=== PATIENT | female | born 1965 | race Caucasian/White ===

== ENCOUNTER 2017-01-09 12:27 | Emergency (ER) | payer MEDICAID, OTHER ==
[~2017-01-09] VITALS: Ht 157.5 cm; Wt 78.1 kg
[2017-01-09 12:32] VITALS: BP 163/90; PULSE 80; RESP 18; TEMP 97.6; O2SAT 98
[2017-01-09] MEDS ORDERED: SODIUM CHLORIDE 0.9% FLUSH 10 ML FLUSH IV FLUSH PRN (13:15)
--- NOTE | 2017-01-09 13:43 | PD ---
HPI Chief Complaint: Abdominal Pain Time Seen by Provider: 13:10 Travel History International Travel<30 days: No Contact w/Intl Traveler<30days: No Traveled to known affect area: No History of Present Illness HPI 51-year-old female complains of left low quadrant abdominal pain with nausea. Patient states that she has intermittent left low quadrant abdominal pain with nausea for the past few months. Patient was seen by personal physician in [place] in October of this year and was diagnosed with UTI. Patient was given prescription for antibiotic. Patient states that she took the antibiotic as directed. Patient states that she had some improvement of the right-sided abdominal pain however never cleared up completely. Patient states that the pain get worse since then. Patient denies any fever chills. Patient states that the pain is worse with eating. Patient denies any dysuria or frequency. Patient denies any vaginal discharge or bleeding. Patient status post tubal ligation. Patient states that the pain occasionally radiates to the left low back area. Patient had a gynecologic exam recently and was normal. On a scale of 1-10 the pain is a 9. PFSH Past Medical History Cardiovascular Problems: Yes (HTN) Diminished Hearing: No Hypertension: Yes Tetanus Vaccination: Never Vaccinated Influenza Vaccination: No ?: Not Menopausal: Yes Past Surgical History Other Surgery: Yes (Right foot tendon repair) Social History Alcohol Use: No Tobacco Use: No Substance Use: No Allergies-Medications (Allergen,Severity, Reaction): Coded Allergies: Codeine (Verified Allergy, Intermediate, HIVES, 01/09/17) Reported Meds & Prescriptions Reported Meds & Active Scripts Active Reported Lisinopril 20 Mg Tab 20 Mg PO DAILY Estradiol 2 Mg Tab 2 Mg PO DAILY Review of Systems General / Constitutional: No: Fever Eyes: No: Visual changes HENT: No: Headaches Cardiovascular: No: Chest Pain or Discomfort Respiratory: No: Shortness of Breath Gastrointestinal: Positive: Nausea, Abdominal Pain Genitourinary: No: Dysuria Musculoskeletal: No: Pain Skin: No Rash Neurologic: No: Weakness Psychiatric: No: Depression Endocrine: No: Polydipsia Hematologic/Lymphatic: No: Easy Bruising Physical Exam Narrative GENERAL: Well-nourished, well-developed patient. SKIN: Focused skin assessment warm/dry. HEAD: Normocephalic. EYES: No scleral icterus. No injection or drainage. NECK: Supple, trachea midline. No JVD or lymphadenopathy. CARDIOVASCULAR: Regular rate and rhythm without murmurs, gallops, or rubs. RESPIRATORY: Breath sounds equal bilaterally. No accessory muscle use. GASTROINTESTINAL: Abdomen soft, nondistended. Patient has moderate tenderness on palpation left lower quadrant of the abdomen. No rebound tenderness. No mass. MUSCULOSKELETAL: No cyanosis, or edema. BACK: Nontender without obvious deformity. No CVA tenderness. Neurologic exam normal. Data Data Last Documented VS Vital Signs Date Time Temp Pulse Resp B/P Pulse Ox O2 Delivery O2 Flow Rate FiO2 01/09/17 12:32 97.6 80 18 163/90 98 Orders Complete Blood Count With Diff (01/09/17 13:14) Comprehensive Metabolic Panel (01/09/17 13:14) Lipase (01/09/17 13:14) Prothrombin Time / Inr (Pt) (01/09/17 13:14) Act Partial Throm Time (Ptt) (01/09/17 13:14) Urinalysis - C+S If Indicated (01/09/17 13:14) Ct Abd/Pel W Iv Contrast(Rout) (01/09/17 13:14) Iv Access Insert/Monitor (01/09/17 13:14) Ecg Monitoring (01/09/17 13:14) Oximetry (01/09/17 13:14) Sodium Chloride 0.9% Flush (Ns Flush) (01/09/17 13:15) Iohexol 350 Inj (Omnipaque 350 Inj) (01/09/17 14:45) Labs Laboratory Tests Test 01/09/17 13:35 White Blood Count 5.1 TH/MM3 Red Blood Count 4.02 MIL/MM3 Hemoglobin 13.6 GM/DL Hematocrit 39.2 % Mean Corpuscular Volume 97.5 FL Mean Corpuscular Hemoglobin 33.8 PG Mean Corpuscular Hemoglobin 34.6 % Concent Red Cell Distribution Width 12.7 % Platelet Count 262 TH/MM3 Mean Platelet Volume 6.8 FL Neutrophils (%) (Auto) 52.3 % Lymphocytes (%) (Auto) 37.2 % Monocytes (%) (Auto) 8.7 % Eosinophils (%) (Auto) 1.4 % Basophils (%) (Auto) 0.4 % Neutrophils # (Auto) 2.7 TH/MM3 Lymphocytes # (Auto) 1.9 TH/MM3 Monocytes # (Auto) 0.4 TH/MM3 Eosinophils # (Auto) 0.1 TH/MM3 Basophils # (Auto) 0.0 TH/MM3 CBC Comment DIFF FINAL Differential Comment Prothrombin Time 10.6 SEC Prothromb Time International 1.0 RATIO Ratio Activated Partial 25.7 SEC Thromboplast Time Urine Collection Type VOIDED Urine Color YELLOW Urine Turbidity CLEAR Urine pH 5.5 Urine Specific [place] 1.024 Urine Protein NEG mg/dL Urine Glucose (UA) NEG mg/dL Urine Ketones NEG mg/dL Urine Occult Blood MOD Urine Nitrite NEG Urine Bilirubin NEG Urine Leukocyte Esterase TRACE Urine WBC 0-2 /hpf Urine Squamous Epithelial 6-8 /hpf Cells Urine Mucus FEW /lpf Microscopic Urinalysis Comment CULT NOT INDICATED Sodium Level 144 MEQ/L Potassium Level 3.7 MEQ/L Chloride Level 110 MEQ/L Carbon Dioxide Level 27.9 MEQ/L Anion Gap 6 MEQ/L Blood Urea Nitrogen 16 MG/DL Creatinine 0.98 MG/DL Estimat Glomerular Filtration 59 ML/MIN Rate Random Glucose 92 MG/DL Calcium Level 8.0 MG/DL Total Bilirubin 0.3 MG/DL Aspartate Amino Transf 12 U/L (AST/SGOT) Alanine Aminotransferase 18 U/L (ALT/SGPT) Alkaline Phosphatase 65 U/L Total Protein 7.1 GM/DL Albumin 3.5 GM/DL Lipase 265 U/L [facility] Medical Decision Making Medical Screen Exam Complete: Yes Emergency Medical Condition: Yes Interpretation(s) 1430 PM. CBC within normal limit. CMP within normal limit. UA negative. 1505 p.m. Differential Diagnosis Differential diagnosis including UTI, pyelonephritis, nephrolithiasis, colitis, ovarian cyst, ovarian torsion, Narrative Course 51-year-old female with left low quadrant abdominal pain and nausea. Diagnosis Primary Impression: Abdominal pain Qualified Code: R10.32 - Left lower quadrant pain Patient Instructions: General Instructions Additional Instructions: Take medication as needed for pain. Follow-up with micropaleontologist. Return if worse. Med/Other Pt SpecificInfo: Prescription(s) given Scripts Meloxicam (Mobic)15 Mg Tab15 Mg PO DAILY #20 TAB Prov:Karri Wynn MD 01/09/17 Disposition: 01 DISCHARGE HOME Condition: Stable Karri Wynn MD Jan 09, 2017 13:42
[2017-01-09 13:55] LABS: AUTOMATED NEUTROPHIL # 2.7 TH/MM3 (1.8-7.7); BASOPHIL % 0.4 % (0.0-2.0); EOSINOPHIL # 0.1 TH/MM3 (0-0.4); EOSINOPHIL % 1.4 % (0.0-4.0); HEMATOCRIT 39.2 % (35.0-46.0); HEMO FLAGS DIFF FINAL; LYMPH % 37.2 % (9.0-44.0); LYMPHOCYTE # 1.9 TH/MM3 (1.0-4.8); MEAN CELL VOLUME 97.5 FL (80.0-100.0); MEAN CORPUSCULAR HEMOGLOBIN 33.8 PG (27.0-34.0); MEAN CORPUSCULAR HGB CONC 34.6 % (32.0-36.0); MONO % 8.7 % (0.0-8.0); NEUT % 52.3 % (16.0-70.0); PLATELET COUNT 262 TH/MM3 (150-450); RED BLOOD COUNT 4.02 MIL/MM3 (4.00-5.30); RED CELL DISTRIBUTION WIDTH 12.7 % (11.6-17.2); WHITE BLOOD COUNT 5.1 TH/MM3 (4.0-11.0)
[2017-01-09 13:56] LABS: GLUCOSE,URINE NEG (NEG); KETONE, URINE NEG (NEG); NITRITE,URINE NEG (NEG); PH, URINE 5.5 (5.0-8.5)
[2017-01-09 14:04] LABS: BLOOD, URINE MOD (NEG); METHOD OF COLLECTION VOIDED; URINE COLOR YELLOW (YELLW/STRAW)
[2017-01-09 14:05] LABS: MUCUS URINE FEW /lpf (OCC); WBC, URINE 0-2 /hpf (0-5)
[2017-01-09 14:06] LABS: CHLORIDE 110 MEQ/L (98-107); COMMENT (UR) CULT NOT INDICATED; CULTURE IF INDICATED CULT NOT INDICATED; POTASSIUM 3.7 MEQ/L (3.5-5.1); SODIUM (NA) 144 MEQ/L (136-145)
[2017-01-09 14:10] LABS: ANION GAP 6 MEQ/L (5-15); BICARBONATE 27.9 MEQ/L (21.0-32.0); BLOOD UREA NITROGEN 16 MG/DL (7-18)
[2017-01-09] MEDS ORDERED: LISI-515 PO (14:10)
[2017-01-09] MEDS ORDERED: ESTR2TAB PO (14:10)
[2017-01-09 14:11] LABS: APTT (PATIENT) 25.7 SEC (24.3-30.1); PROTHROMBIN TIME - PATIENT 10.6 SEC (9.8-11.6)
[2017-01-09 14:13] LABS: ALT (GPT) 18 U/L (10-53); AST (GOT) 12 U/L (15-37); GLOMERULAR FILTRATION RATE 59 ML/MIN (>89)
[2017-01-09 14:15] LABS: TOTAL BILIRUBIN ADULT 0.3 MG/DL (0.2-1.0)
[2017-01-09 14:16] LABS: ALKALINE PHOSPHATASE 65 U/L (45-117)
[2017-01-09] MEDS ORDERED: IOHEXOL 350 MG/ML 10 ML VIAL (for RAD DIAG) IV ONE (14:45)
--- NOTE | 2017-01-09 15:02 | RADRPT ---
EXAM DATE/TIME: 01/09/2017 14:31 [facility] COMPARISON: No previous studies available for comparison. INDICATIONS : Left lower quadrant pain. Nausea. IV CONTRAST: 85 cc Omnipaque 350 (iohexol) IV ORAL CONTRAST: No oral contrast ingested. RADIATION DOSE: 10.84 CTDIvol (mGy) MEDICAL HISTORY : Hypertension. SURGICAL HISTORY : None. ENCOUNTER: Initial ACUITY: 4 - 6 months PAIN SCALE: 9/10 LOCATION: Left lower quadrant TECHNIQUE: Volumetric scanning of the abdomen and pelvis was performed. Using automated exposure control and ad justment of the mA and/or kV according to patient size, radiation dose was kept as low as reasonably achievable to obtain optimal diagnostic quality images. DICOM format image data is available electro nically for review and comparison. FINDINGS: LOWER LUNGS: The visualized lower lungs are clear. LIVER: Homogeneous density without lesion. There is no dilation of the biliary tree. No calcified gallston es. SPLEEN: Normal size without lesion. PANCREAS: Within normal limits. KIDNEYS: Normal in size and shape. There is no mass, stone or hydronephrosis. ADRENAL GLANDS: Within normal limits. VASCULAR: There is no aortic aneurysm. There is mild atherosclerotic disease. BOWEL/MESENTERY: The stomach, small bowel, and colon demonstrate no acute abnormality. There is no free intraperitone al air or fluid. ABDOMINAL WALL: Within normal limits. RETROPERITONEUM: There is no lymphadenopathy. BLADDER: No wall thickening or mass. REPRODUCTIVE: Uterus demonstrates heterogeneous enhancement with possible fibroids INGUINAL: There is no lymphadenopathy or hernia. MUSCULOSKELETAL: Within normal limits for patient age. There are degenerative changes of the spine. CONCLUSION: 1. No acute finding is identified to explain the clinical symptoms. 2. Mild atherosclerotic disease. Kvng Jarrell MD on January 09, 2017 at 14:57 Board Certified Radiologist. This report was verified electronically.
[2017-01-09] MEDS ORDERED: MOBI15TA PO (15:10)
== END 2017-01-09 15:35 | disposition home or self-care (01) ==
LOC: PHED 12:27
DX: R10.32 Left lower quadrant pain (principal); R11.0 Nausea
CPT/HCPCS: 74177; 80053; 81001; 83690; 85025; 85610; 85730; 99284; Q9967